=== PATIENT | male | born 1965 | race Caucasian/White ===

== ENCOUNTER 2024-03-09 09:35 | Emergency (ER) | payer OTHER, SELFPAY ==
[2024-03-09 09:37] VITALS: PULSE 0; RESP 0
--- NOTE | 2024-03-09 09:40 | PC.NURSE ---
Pt arrived to ED via EMS stretcher with Isaac device utilized for compressions and pt being manually ventilated. EDP Dr. Carrington in room. Pt moved over to ED stretcher, Isaac device still doing compressions. EDP did a pulse check and pronounced TOD at 0938, Pt in asystole and pulseless.
--- NOTE | 2024-03-09 09:59 | ED_ITS ---
HPI - General Adult General Chief complaint: Cardiac Arrest/CPR Stated complaint: Cardiac arrest Time Seen by Provider: 03/09/24 09:41 History of Present Illness HPI narrative: This is a 60-year-old male presenting for cardiac arrest. Patient was found unresponsive not breathing and in the bathroom at [facility]. EMS was called at 8:58 a.m. patient was found to be in cardiac arrest and asystole. No bystander CPR. ACLS protocols were followed and he was brought to the hospital arriving at 9:35 a.m. Exam Narrative: APPEARANCE: Unresponsive Head: atraumatic. EYES: Fixed dilated NOSE: Atraumatic NECK: Trachea midline RESPIRATORY: No spontaneous breathing, rhonchorous breath sounds CARDIOVASCULAR: No pulse ABDOMINAL: Non-distended MUSCULOSKELETAl: No obvious deformities NEURO: Unresponsive SKIN:: Pale/cool PSYCHIATRIC: Unresponsive Course Vital Signs Vital signs: Vital Signs Pulse Rate 0 L 03/09/24 09:37 Respiratory Rate 0 L 03/09/24 09:37 Pulse Rate 0 L 03/09/24 09:37 Respiratory Rate 0 L 03/09/24 09:37 Medical Decision Making MDM Narrative Medical decision making narrative: -Course: 60-year-old male presented to the ED in cardiac arrest. Unwitnessed arrest w/ asystole on ems arrival. ACLS was performed by ems and the patient never had any return of spontaneous circulation or change in cardiac rhythm from asystole. Over 40 minutes of down time by time he arrived in the ED. Chance of neurologically intact arrival is 0. Time of was called at 9:38 a.m.. Vital Signs Vital Signs: Vital Signs Pulse Rate 0 L 03/09/24 09:37 Respiratory Rate 0 L 03/09/24 09:37 Pulse Rate 0 L 03/09/24 09:37 Respiratory Rate 0 L 03/09/24 09:37 Discharge Plan Discharge Clinical Impression: Cardiac arrest Patient Disposition: Condition:
== END 2024-03-09 11:50 | disposition expired ==
LOC: ANHED 10:10
PROVIDERS: Emergency Provider Emergency Medicine; PCP Internal Medicine
DX: I46.9 Cardiac arrest, cause unspecified (principal)
CPT/HCPCS: 92950; 99285; J0171